=== PATIENT | female | born 1980 | race Two or more races ===

== ENCOUNTER 2025-01-08 07:53 | Outpatient (CLI) | payer OTHER | END 2025-01-08 07:56 | disposition home or self-care (01) | LOC: TOM 07:53 | PROVIDERS: ATTEND Internal Medicine | DX: Z12.11 Encounter for screening for malignant neoplasm of colon (principal) ==

== ENCOUNTER 2025-06-26 09:50 | Outpatient (CLI) | payer OTHER | END 2025-06-26 09:58 | disposition home or self-care (01) | LOC: TOM 09:50 | PROVIDERS: ATTEND Surgery | DX: K55.1 Chronic vascular disorders of intestine (principal); K57.20 Diverticulitis of large intestine with perforation and abscess without bleeding ==

== ENCOUNTER 2025-07-19 07:29 | Outpatient (CLI) | payer OTHER | END 2025-07-19 07:31 | disposition home or self-care (01) | LOC: SONOGRAMA 07:29 | DX: I12.9 Hypertensive chronic kidney disease with stage 1 through stage 4 chronic kidney disease, or unspecified chronic kidney disease (principal); I70.1 Atherosclerosis of renal artery ==

== ENCOUNTER → 2025-07-24 08:21 | Outpatient (CLI) | payer OTHER | END | disposition home or self-care (01) | LOC: NUCLEAR 08:21 | DX: I27.20 Pulmonary hypertension, unspecified (principal); I27.82 Chronic pulmonary embolism ==

== ENCOUNTER 2025-07-31 10:00 | Outpatient (CLI) | payer OTHER | END 2025-07-31 10:06 | disposition home or self-care (01) | LOC: MRI 10:00 | PROVIDERS: ATTEND Surgery | DX: R19.00 Intra-abdominal and pelvic swelling, mass and lump, unspecified site (principal); K57.32 Diverticulitis of large intestine without perforation or abscess without bleeding | CPT/HCPCS: 72196 ==